=== PATIENT | female | born 1935 | race Two or more races ===

== ENCOUNTER 2018-01-29 14:37 | Outpatient (CLI) | payer OTHER ==
[~2018-01-29 14:37] MED LIST: DICLOFENAC SODI75 MG; DONEPEZIL HCL5 MG; ECOTRIN81 MG PO; FOSINOPRIL SODI40 MG PO; INTESTINEX1 CAP PO; LYRICA100 MG; METFORMIN HCL500 MG PO; NORVASC5 MG; SIMVASTATIN40 MG
== END 2018-01-29 15:35 | disposition home or self-care (01) ==
LOC: MAMO-SONO 14:37
DX: Z12.31 Encounter for screening mammogram for malignant neoplasm of breast (principal); Z87.898 Personal history of other specified conditions; N60.11 Diffuse cystic mastopathy of right breast; N60.12 Diffuse cystic mastopathy of left breast

== ENCOUNTER 2019-05-26 10:21 | Outpatient (CLI) | payer OTHER | END 2019-05-26 10:39 | disposition home or self-care (01) | LOC: RAD 10:21 | DX: M54.2 Cervicalgia (principal); R10.84 Generalized abdominal pain ==

== ENCOUNTER 2020-10-10 08:04 | Outpatient (CLI) | payer OTHER | END 2020-10-10 08:06 | disposition home or self-care (01) | LOC: SONOGRAMA 08:04 → MAMO-SONO 08:15 | PROVIDERS: ATTEND Family Medicine | DX: Q44.6 Cystic disease of liver (principal); Q61.8 Other cystic kidney diseases; K82.4 Cholesterolosis of gallbladder ==

== ENCOUNTER 2021-08-07 12:45 | Outpatient (CLI) | payer OTHER | END 2021-08-07 12:54 | disposition home or self-care (01) | LOC: RAD 12:45 | PROVIDERS: ATTEND Family Medicine | DX: M54.5 Low back pain (principal) ==

== ENCOUNTER 2021-11-23 09:32 | Outpatient (CLI) | payer OTHER | END 2021-11-23 09:44 | disposition home or self-care (01) | LOC: MRI 09:32 | PROVIDERS: ATTEND Family Medicine | DX: M47.26 Other spondylosis with radiculopathy, lumbar region (principal) | CPT/HCPCS: 72148 ==